=== PATIENT | male | born 1960 | race Caucasian/White ===

== ENCOUNTER → 2020-10-23 | Outpatient (CLI) | payer OTHER ==
--- NOTE | 2020-10-25 09:13 | BD ---
EXAMINATION TYPE: Axial Bone Density DATE OF EXAM: 10/23/2020 COMPARISON: NONE CLINICAL HISTORY: Height: 5 FT 9 IN Weight: 178 FRAX RISK QUESTIONS: Alcohol (3 or more units per day): NO Family History (Parent hip fracture): NO Glucocorticoids (More than 3mos): NO (Ex: prednisone, prednisolone, methylprednisolone, dexamethasone, and hydrocortisone). History of Fracture in Adulthood: NO Secondary Osteoporosis: 1. Type 1 Diabetes: NO 2. Hyperthyroidism: NO 3. Menopause before 45: NA 4. Malnutrition: NO 5. Chronic liver disease: NO Rheumatoid Arthritis: NO Current Tobacco Use: NO RISK FACTORS HISTORY OF: Surgery to Spine/Hip(right/left)/Wrist (right/left): NO Family History of Osteoporosis: YES Active: YES Diet low in dairy products/other sources of calcium: NO Postmenopausal woman: NA If Premenopausal, do you have irregular periods: NA Take estrogen and/or progesterone medications: NA Lost more than 2 inches in height since high school: NO MEDICATIONS: Additional Medications: NONE Additional History: EXAM MEASUREMENTS: Bone mineral densitometry was performed using the [employer] System. Bone mineral density as measured about the Lumbar spine is: ----- L1-L4(G/cm2): 1.257 T Score Values are as follows: ----- L2: -0.3 ----- L3: 1.0 ----- L4: 1.6 ----- L1-L4: 0.6 BASELINE Bone mineral density about the R hip (g/cm2): 0.904 Bone mineral density about the L hip (g/cm2): 0.882 T Score values are as follows: -----R Neck: -1.0 -----L Neck: -1.1 -----R Total: 0.1 -----L Total: 0.0 BASELINE IMPRESSION: Normal bone mineral density. NOTE: T-SCORE=SD OF THE YOUNG ADULT MEAN.
== END | disposition home or self-care (01) ==
LOC: RADBDWWP 16:10
PROVIDERS: ATTEND Family Medicine
DX: Z13.820 Encounter for screening for osteoporosis (principal); M48.50XA Collapsed vertebra, not elsewhere classified, site unspecified, initial encounter for fracture
CPT/HCPCS: 77080

== ENCOUNTER → 2024-11-14 | Outpatient (CLI) | payer OTHER ==
--- NOTE | 2024-11-20 22:25 | CT ---
EXAMINATION TYPE: CT chest wo/w con DATE OF EXAM: 11/14/2024 12:12 PM COMPARISON: None CLINICAL INDICATION: Male, 63 years old with history of R05.3 CHRONIC COUGH; PHH, c/o cough and conge stion TECHNIQUE: CT of the chest before and after IV contrast. Coronal and sagittal reconstructions perform ed. Contrast used:100 mL of Isovue 300 without and with IV Contrast CT DLP: 816.9 mGycm, Automated exposure control for dose reduction was used. FINDINGS: The heart is normal size without pericardial effusion. No significant coronary artery calcifications are present. Aorta normal caliber with conventional arch vessel branching anatomy. Scattered nonenlarged and borderline to mildly enlarged mediastinal and hilar lymph nodes are present : Upper right paratracheal 1.1 cm. Lower right paratracheal 1.0 cm. Right and left hilar 1.0 cm. Subcarinal 1.3 cm. Right bronchial 9 mm. There is some strandy atelectasis in the lower lungs. Some hazy dependent atelectasis is also present . Mild emphysematous change. 5 mm medial right upper lobe pulmonary nodule, axial image 9. 6 mm right middle lobe pulmonary nodule, axial image 39. No consolidation or pleural effusion. Visualized upper abdomen shows low attenuation of the hepatic parenchyma suggesting fatty infiltratio n. A few scattered hepatic hypodensities measuring up to 1.2 cm probably represent cysts. 1.4 cm low-density right adrenal nodule with Hounsfield units of 7 suggesting lipid rich adrenal joseph david. Scattered mild stool. Bones: Accentuated upper thoracic kyphosis. DISH lower thoracic spine. IMPRESSION: 1. COPD with mild emphysema. 2. A few scattered borderline to mildly enlarged mediastinal and hilar lymph nodes probably reactive/ post inflammatory. Recommend three-month follow-up CT to exclude a neoplastic etiology. 3. A couple pulmonary nodules measuring 5 mm and 6 mm on the right. These can also be reassessed at a 3 month follow-up. 4. 1.4 cm right adrenal nodule with density suggesting lipid rich adrenal adenoma. Follow up recommendations for incidental pulmonary nodules, if there are any, are per [place] or [employer]. [facility], , 11/20/2024 10:22 PM
== END | disposition home or self-care (01) ==
LOC: RADCTMAIN 11:20
PROVIDERS: ATTEND Family Medicine
DX: J43.9 Emphysema, unspecified (principal); R59.0 Localized enlarged lymph nodes; R91.8 Other nonspecific abnormal finding of lung field
CPT/HCPCS: 71270; Q9967